=== PATIENT | male | born 1980 | race Caucasian/White ===

== ENCOUNTER 2023-03-26 09:25 | Outpatient (REF) | payer SELFPAY ==
[2023-03-27 10:12] LABS: Testosterone 422 ng/dL (264-916)
== END 2023-03-26 09:26 | disposition home or self-care (01) ==
LOC: LAB 09:25
PROVIDERS: PCP Family Medicine; Visit Provider Family Medicine
DX: E29.1 Testicular hypofunction (principal)
CPT/HCPCS: 36415; 84403

== ENCOUNTER 2024-03-04 08:59 | Outpatient (OUT) | payer SELFPAY ==
--- NOTE | 2024-03-04 09:04 | XR_ITS ---
[facility] [place] [id number] Patient Name: BAILEY ESTRELLA MRN: [id number] date: 1980 Sex: M Assigned Patient Location: [facility] Current Patient Location: Accession/Order Number: [id number] Exam Date: 03/04/2024 09:20 Report Date: 03/08/2024 07:10 At the request of: MICHELET OLMSTEAD Procedure: XR lumbar spine 2-3V EXAMINATION: XR lumbar spine 2-3V HISTORY: Lumbar Radiculopathy Acute M54.16 COMPARISON: No relevant comparison available. FINDINGS: BONES: Normal alignment with no acute fracture or spondylolisthesis. Moderate facet osteoarthropathy L5-S1 DISC SPACES: Normal. No significant disc height narrowing, subluxation, or endplate abnormality. PARASPINOUS: Negative. No paraspinous abnormality is seen. OTHER: Negative. XR/XR lumbar spine 2-3V IMPRESSION: Facet osteoarthritis Electronically authenticated by: MARY IZAGUIRRE Date: 03/08/2024 07:10
--- OUTSIDE RECORDS SUMMARY | 2024-03-04 09:09 | XMS_ITS | CCD ---
Author Organization [facility] Care Team Providers Care Circle Beveler Name Role Phone ISHAN, DR TAFOYA Admitting Unavailable ISHAN, DR TAFOYA Attending Unavailable HOY, DR TAFOYA Consulting Unavailable ISHAN, DR TAFOYA Primary Care Unavailable MARIELENA ARMENTA Attending Unavailable KATHI, MARIELENA Admitting Unavailable MARIELENA ARMENTA Consulting Unavailable ISHAN, DR TAFOYA Primary Care Unavailable ISHAN, DR TAFOYA Admitting Unavailable TONGY, DR TAFOYA Attending Unavailable HOY, DR TAFOYA Consulting Unavailable WEST, DR MARY Fonseca Consulting Unavailable ISHAN, DR TAFOYA Primary Care Unavailable ISAHN, DR TAFOYA Admitting Unavailable ISHAN, DR TAFOYA Attending Unavailable TONGY, DR TAFOYA Consulting Unavailable ZIEBER, DR SHAINA Dumont Consulting Unavailable HOY, DR TAFOYA Consulting Unavailable TONGY, DR TAFOYA Primary Care Unavailable TONGY, DR TAFOYA Admitting Unavailable ISHAN, DR TAFOYA Attending Unavailable Allergies Allergy Classification Reported Allergen(s) Allergy Type Date of Onset Reaction(s) Facility (1 source) Penicillin Drug Allergy [facility] Repository Problems Active Problems Problem Classification Problem Date Documented Date Episodic/Chronic Spondylosis; intervertebral disc disorders; other back problems (4 sources) Spondylosis without myelopathy or radiculopathy, lumbar region; Translations: [Other intervertebral disc degeneration, lumbosacral region] Onset: 09-18-2021 Chronic Spondylosis; intervertebral disc disorders; other back problems (4 sources) Dorsalgia, unspecified; Translations: [Sciatica, right side] Onset: 09-09-2021 Episodic Substance-related disorders (1 source) Nicotine dependence, cigarettes, uncomplicated; Translations: [NICOTINE DEPEND CIGARETTES UNCOMP] Onset: 09-11-2021 Chronic Unclassified (3 sources) CONTACT W/AND (SUSP) EXPOS COVID-19; Translations: [CONTACT W/AND (SUSP) EXPOS COVID-19] Onset: 10-11-2021 Unclassified (3 sources) LOW BACK PAIN, UNSPECIFIED; Translations: [LOW BACK PAIN, UNSPECIFIED] Onset: 09-18-2021 Viral infection (1 source) COVID-19; Translations: [COVID-19] Onset: 05-22-2021 Past or Other Problems Problem Classification Problem Date Documented Da te Episodic/Chronic Acute bronchitis (1 source) Acute bronchitis, unspecified; Translations: [ACUTE BRONCHITIS UNSPECIFIED] Onset: 05-22-2021 Episodic Unclassified (1 source) CONTACT W/AND (SUSP) EXPOS COVID-19; Translations: [CONTACT W/AND (SUSP) EXPOS COVID-19] Onset: 10-09-2021 Unclassified (1 source) LOW BACK PAIN, UNSPECIFIED; Translations: [LOW BACK PAIN, UNSPECIFIED] Onset: 09-13-2021 Results Test Name Value Interpretation Reference Range Facility Anesthesia Noteon 10-13-2021 Anesthesia Note [facility] Patient: FLOYD ESTRELLA [address] [place] [address] MR#: [id number] ANESTHESIA NOTE : Service Date: 10/13/21956 Post-anesthesia Note Note Patient assessed post operatively for the following: [x ] Respiratory function, including respiratory rate, airway patency and oxygen saturation [x ] Cardiovascular function, including pulse rate and blood pressure [x ] Mental status [x ] Temperature [x ] Pain [x ] Nausea and vomiting [x ] Postoperative hydration [x ] No Visual Changes Due to the following condition(s) additional monitoring may be necessary: [ ] [x ] No apparent anesthesia complications noted. [x ] Status as per pre-op Electronically Signed eSign Date and Time Gilson Dhillon AA 10/13/21 0957 Christo Amos MD Normal [facility] BASIC MET PANELon 10-13-2021 Anion gap [Moles/Vol] 9 mmol/L Normal 6-18 [facility] Comment on above: Performed By: #### L 500.36367, L500.80566 ####Test performed at: [place] [address] Calcium [Mass/Vol] 9.7 mg/dL Normal 8.5-10.1 [facility] Comment on above: Performed By: #### L 500.74061, L500.40060 ####Test performed at: [address] [address] Chloride [Moles/Vol] 108 mmol/L High 98-107 [facility] Comment on above: Performed By: #### L 500.43052, L500.92076 ####Test performed at: [address] [address] CO2 [Moles/Vol] 27 mmol/L Normal 21-32 [facility] Comment on above: Performed By: #### L 500.01075, L500.84103 ####Test performed at: [address] [address] Creatinine [Mass/Vol] 0.861 mg/dL Normal 0.700-1.300 [facility] Comment on above: Performed By: #### L 500.27663, L500.04703 ####Test performed at: [address] [address] Glucose [Mass/Vol] 120 mg/dL High 70-99 [facility] Comment on above: Result Comment: Fast ing GLUCOSE reference range has been updated per (ADA) [place] [employer]'s recommendation. 08/11/2018 Performed By: #### L 500.45780, L500.24982 ####Test performed at: [address] [address] OSM 291 mosm/kg Normal 270-300 [facility] Comment on above: Performed By: #### L 500.10292, L500.59617 ####Test performed at: [address] [address] Potassium [Moles/Vol] 4.2 mmol/L Normal 3.5-5.1 [facility] Comment on above: Performed By: #### L 500.19107, L500.91641 ####Test performed at: [place] [address] Sodium [Moles/Vol] 140 mmol/L Normal 136-145 [facility] Comment on above: Performed By: #### L 500.52135, L500.44774 ####Test performed at: [place] [address] Urea nitrogen [Mass/Vol] 11 mg/dL Normal 7-18 [facility] Comment on above: Performed By: #### L 500.40381, L500.62269 ####Test performed at: [place] [address] Discharge CCD Assessmenton 0 10-13-2021 Discharge CCD Assessment [facility] Patient: FLOYD ESTRELLA [address] [place] [address] MR#: [id number] DISCHARGE CCD ASSESSMENT : 81 Service Date: 10/13/21 1227 Discharge CCD Assessment Assessment Patient discharged home to continue pain control, wound care, and exercises. Electronically Signed eSign Date and Time Daisy Hu 10/13/21 1227 Chad Rodney MD Normal [facility] GFR ESTIMATEon 10-13-2021 IF AMER > 60 Normal > 60 [facility] Comment on above: Result Comment: eGFR (Estimated GFR) Units of measure:mL/min/1.73 meters sq. *CALCULATION REVISED 03/07/2015;IDMS-traceable MDRD equation eGFR is derived from the reexpressed MDRD Study equation using the following parameters: serum creatinine, age, gender and race. An eGFR<60 mL/min/1.73m2 for >3 months is consistent with chronic kidney disease. Refer to KDOQI guidelines for clinical interpretation. Performed By: #### L 500.96500, L500.99747 ####Test performed at: [place] [address] IF non-AFR AMER > 60 Normal > 60 [facility] Comment on above: Performed By: #### L 500.65243, L500.06764 ####Test performed at: [place] [address] HGB AND HCTon 10-13-2021 Hematocrit (Bld) [Volume fraction] 37.8 % Low 39.0-55.0 [facility] Comment on above: Performed By: #### L 200.75442 ####Test performed at: [address] [address] Hemoglobin (Bld) [Mass/Vol] 13.0 g/dL Low 14.0-16.5 [facility] Comment on above: Performed By: #### L 200.71448 ####Test performed at: [place] [address] Internal Med Progress Noteon 10-13-2021 Internal Med Progress Note [facility] Patient: FLOYD ESTRELLA [address] [place] [address] MR#: [id number] PROGRESS NOTE - Internal Medicine : 81 Service Date: 10/13/21724 Subjective Summary of Stay Mr. Floyd Estrella is a 41 yo M w/ PMHx of childhood asthma, smoker, and facet osteoarthritis L5-S1 and lumbar stenosis with foot drop (right) who is POD 1 s/p R L4-L5 LFD disectomy. IM was consulted for post op care. Procedure done under genereal anesthesia. EBL 30 cc. Pt tolerated the procedure well w/o complications. Pt was evaluated post op, vitals wnl. Patient denies any CP, SOB, nausea, vomiting, abd pain, fever, chills or MORRISON. Miky. No hill. Events since last encounter uneventful Subjective Patient states his back pain is better and numbness on right foot is improved since surgery. Pt denies bowel movement. Passing gas. Patient denies chest pain, sob, nausea, vomiting, or abd pain. Other Systems ROS are negative unless stated otherwise in the HPI Objective Exam Vitals and I/O Vital Signs Verdana 4d Result Date Time Pulse Ox 97 10/13 0001 B/P 131/72 10/13 0001 O2 Delivery ROOM AIR 10/13 0001 Temp 36.7 10/13 0001 Pulse 103 10/13 0001 Resp 18 10/13 0001 O2 Flow Rate 2 10/12 1746 Intake AND Output Verdana 4d 10/13 2300 10/12 2300 Intake Total 2295 600 Output Total 2600 1550 Balance -305 -950 Intake, IV 1195 Oral 1100 600 utput, 50 rainage Output, Urine 2550 1550 Patient 146 kg eight Weight PATIENT STATES easurement ethod General Appearance Alert, Oriented X3, Cooperative, No Acute Distress HEENT Atraumatic, PERRLA Lungs Clear to Auscultation, Normal Air Movement Neck Supple Cardiovascular Regular Rate, Normal S1, Normal S2 Abdomen Normal Bowel Sounds, Soft Extremities Normal Pulses, RT numbness on foot Skin No Significant Lesion Neurological Strength at 5/5 X4 Ext Assessment/Plan-Inte rnal Med Problem List 1. Status post lumbar spine surgery for decompression of spinal cord Med Reasons/Tx for Con't stay as above Assessment #POD 1 s/p R L4-L5 LFD disectomy -No complaints reported; no bowel movement, passing flatus. Patient denies chest pain, sob , abd pain, fever or chills. RT foot numbness has improved since sugery Vital Signs Result Date Time Pulse Ox 97 10/13 0001 B/P 131/72 10/13 0001 O2 Delivery ROOM AIR 10/13 0001 Temp 36.7 10/13 0001 Pulse 103 10/13 0001 Resp 10/13 0001 O2 Flow Rate 2 10/12 1746 -Exam showed decreased sensory function in the RT LE (chronic), drain in place -abs reviewed Hb:14.5 > 13, BMP pending -Preop EKG: NSR PLAN: - Ortho team is primary - IV Dexamethasone - IV Fluids - Percocet Q4PRN PO 1 tab for moderate pain and 2 for severe pain, Tylenol 650 mg Q4PRN PO - Colace BID, MOM QHS PRN, Dulcolax PRN, Mylanta PRN - Vasotec 2.5 mg Q6PRN IV for SBP > 170 no home meds, except pain meds #DVT ppx-as per primary team Be sure to note changes Be sure to note changes DVT Prophylaxis per surgery Does Patient have Central Line? No Does Patient have a Hill? No *Attending Attestation Attending Attestation Attending Attestation patient is doing very well, minimal anemia Obesity with BMI above 42 All pertinent elements of history and physical exam were confirmed by me. Agree with above documentation. The [resident's, PA's, CHIEF LOCK OPERATOR's] assessment and plan reflect my input. Discussed with documenting provider and patient. Plan is as outlined above. Electronically Signed eSign Date and Time Cristino Choe Resident Rosa Hurst MD 10/13/21 1043 Normal [facility] OT Therapy Recommendationson 10-13-2021 OT Therapy Recommendations [facility] Patient: FLOYD ESTRELLA [address] [place] [address] MR#: [id number] OT THERAPY RECOMMENDATIONS : 81 Service Date: 10/13/21 1355 Therapy Recommendations Therapy Recommendations Recommendations OT eval completed. Pt will benefit from going home with family support. Electronically Signed eSign Date and Time Marissa Rosas OT 10/13/21 1356 Normal [facility] Orthopedic Progress Noteon 0 10-13-2021 Orthopedic Progress Note [facility] Patient: FLOYD ESTRELLA [facility] [place] [address] MR#: [id number] PROGRESS NOTE - Orthopedic : 81 Service Date: 10/13/21 1206 Subjective Summary of Stay POD #1 Subjective Pt doing well. He states he no longer has any pain down RT leg. He is walking w\o difficulty. He asks appropriate questions about his care. He notes that he has not had BM x 3 days. General Appetite, Denies Chills, Denies Night sweats, Denies Fatigue, Denies Malaise HEENT Denies Head Aches, Denies Visual Changes, Denies Eye Pain, Denies Ear Pain, Denies Dysphasia, Denies Sinus Congestion, Denies Post Nasal Drip, Denies Sore Throat Pulmonary Denies Dyspnea, Denies Cough Cardiovascular Denies Chest Pain, Denies Palpitations, Denies Edema, Denies Lt Headedness Gastrointestinal Denies Nausea, Denies Vomiting Musculoskeletal Back Pain Neurological Denies Weakness, Denies Numbness Objective Exam Vitals and I/O Vital Signs Verdana 4d Result Date Time Pulse Ox 98 10/13 0900 B/P 158/92 10/13 0900 O2 Delivery ROOM AIR 10/13 0900 Temp 36.4 10/13 0900 Pulse 108 10/13 0900 Resp 16 10/13 0900 O2 Flow Rate 2 10/12 1746 Intake AND Output Verdana 4d 10/13 2300 10/12 2300 Intake Total 3295 600 Output Total 3400 1550 Balance -105 -950 Intake, IV 1195 Oral 2100 600 umber 0 owel ovements Output, 50 rainage Output, Urine 3350 1550 Patient 146 kg eight Weight PATIENT STATES easurement ethod General Appearance Alert, Oriented X3, Cooperative, No Acute Distress Abdomen Normal Bowel Sounds, Soft Extremities No Edema, Normal Pulses Neurological Normal Speech, Strength at 5/5 X4 Ext, Normal Tone, Sensation Intact Psych/Mental Status Mental Status NL Other Physical Findings Back dressing dry and secure, HERON drain incorp. scant amt of lt pink drainage. Pt able to plantar and dorsi flex with good strength. Results Results All Laboratory Tests 10/13 0720 Chemistry Sodium (136 - 145 mmol/L) 140 Potassium (3.5 - 5.1 mmol/L) 4.2 Chloride (98 - 107 mmol/L) 108 Carbon Dioxide (21 - 32 mmol/L) 27 BUN (7 - 18 mg/dL) 11 mg/dL) 0.861 Est GFR ( Amer) (> 60) > 60 Est GFR (Non-Af Amer) (> 60) > 60 Glucose (70 - 99 mg/dL) 120 Hematology Hgb (14.0 - 16.5 g/dL) 13.0 Hct (39.0 - 55.0 %) 37.8 Assessment and Plan - ICD10 Problem List 1. Status post lumbar spine surgery for decompression of spinal cord Med Reasons/Tx for Con't stay Discharge Assessment Plan of care per Dr Rodney Discharge later today Follow up in Dr Rodney's office on Friday for drain removal Instructions reviewed and discussed, pt verbalizes good understanding Incentive spirometer Pt discharge with HERON drain, instructions reveiwed with pt Electronically Signed eSign Date and Time Mickie Woodward RN 10/13/213 Chad Rodney MD Normal [facility] PT Therapy Recommendationson 10-13-2021 PT Therapy Recommendations [facility] Patient: FLOYD ESTRELLA [address] [place] [id number] MR#: [id number] PT THERAPY RECOMMENDATIONS : 81 Service Date: 10/13/211212 Therapy Recommendations Therapy Recommendations Recommendations PT eval complete. No further acute PT needs. Recommend d/c home /c family assist. Electronically Signed eSign Date and Time Usha Johnson PT 10/13/21 121 Normal [facility] z OT Inpatient Evaluationon 10-13-2021 z OT Inpatient Evaluation [facility] Patient: FLOYD ESTRELLA [address] [place] [id number] MR#: [id number] OT INPATIENT EVALUATION : 81 Inpatient OT HPI Date of Service 10/13/21 Time In: 1009 Time Out: 1038 Total Treatment Time (Mins) 31 Visit Reason LATERAL RECESS STENOSIS Surgery Type/Date Rt L4-L5 Laminectomy, foraminotomy, decompression with poss discectomy. Referral Date 10/12/21 Tx Diagnosis: LUMBAGO Insurance Name [facility] 41yo M admitted for above surgical procedure. PMH asthma, smoker and facet osteothristis C5-S1; Lumbar stenosis, foot drop Rt. OT received referral to eval and tx with up ad jorge with A, enc ambulation, spinal precautions, brace when out of the room, and log roll. Past Medical/Social History Problem List Surgical Problems Status post lumbar spine surgery for decompression of spinal cord Living Arrangements Home Lives With Spouse, Family Steps to Enter House 3 Stairs Inside House 15 Railings Right Handrail Adaptive Equipment Braces ADL Equipment High Toilet Bedroom Location 1st Floor Bathroom Location 1st Floor Shower Walk in Tasks Prior to Admission Shopping, Driving Transportation Method Patient Drives Functional Level Pt is IND with most self care and IADL. Pt shared that helps with lower body dressing - pants and socks. Objective Precautions Back Brace, Lumbar Spine Pain Scale 2 Pain Character Ache Pain Location Back Comments Increases with mobility. Orientation Person, Place, Time, Situation Behavior Within Normal Limits Sensation Within Normal Limits Hand Dominance Right Coordination Fine Motor Coordination Within Functional Limits Gross Motor Coordination Within Functional Limits ROM RUE ROM Full Range of Motion LUE ROM Full Range of Motion RLE ROM See PT notes LLE ROM See PT notes Strength RUE Strength Unable to Assess LUE Strength Unable to Assess RLE Strength See Pt notes LLE Strength See PT notes Comments Bilateral upper extremities WFLs for participation in management of ADLs and functional mobility tasks. Outcome Measures Prabhu Score Prabhu Score Response Value Feeding Independent 10 Bathing Independent 5 Grooming Independent 5 Dressing Needs Help/Half unaided 5 Bowels Continent 10 Bladder Continent 10 Toilet Independent 10 ransfer(Bed to Chair and Back) Independent 15 obility (On Level Surfaces) Independent 15 tairs Independent 10 otal 95 Comments [5] % disability based on the Prabhu Index ADL Function ADL Function Upper Body Dressing Modified Independent Lower Body Dressing Modified Independent Upper Body Bathing Setup Lower Body Bathing Independent Toileting Independent Feeding Independent Grooming Setup Comments Patient is independent/modified independent with all ADLs and functional mobility tasks. Patient instructed in and performed lower body dressing/ADLs via modified techniques and with long handled adaptive equipment as noted above level of assist. Patient donned pants using hop sorter. OT instructed on exercises, reviewed precautions, and the instructions of the Home Going package. Transfers Transfers Supine to Sit Standby Assist Sit to Stand Supervision Stand to Sit Supervision Sit to Supine Standby Assist Toilet Standby Assist Rolling Standby Assist Comments OT instructed on log roll, pendulum and spinal precautions for bed mobility - pt demo back well. OT provided feedback. Static Sitting Balance Good Dynamic Sitting Balance Good Static Standing Balance Good Dynamic Standing Balance Good Treatment Additional Minutes of Tx Performed 0 Remained in Chair All Needs Within Reach Yes Assessment/Plan for Inpt OT DC Recommendations Home-No Home Health Care Topic #1 Rehabilitation Techniques Teaching Method: DEMONSTATION Outcome: VERBALIZED/ADEQ TEACHBACK Problems ADL Skills, Activity Tolerance Rehab Potential Good Treatment Tolerance Good Assessment Patient demonstrates limitations and decline from functional baseline due to post operative pain, and precautions. Skilled OT services are indicated to address patient deficits and to increase patient safety/independence with ADL management and functional mobility tasks. Patient was pleasant, alert, and cooperative throughout the session. Transfer in/out of bed with: MOD I Complete UB dressing/bathing with: MOD I Complete LB dressing/bathing with: MOD I Transfer in/out tub or walk in shower: Independent Performs UE Exercise With: Antigravity AROM Verbalize/demo Spinal Precautions for ADLs and Transfers Patient Stated Goal: Go home Frequency of Therapy 3-5 Times/Week Duration Until Discharge Treatment Therapeutic Exercise, Therapeutic Activity, Patient Education, Self Care/ADL Training Patient Status ACTIVE Eval Completed Yes Eval Complexity Low Complexity Treatment (more content not included)... Normal [facility] z PT Inpatient Discharge Not mary ann 10-13-2021 z PT Inpatient Discharge Note [facility] Patient: FLOYD ESTRELLA [address] [id number] MR#: [id number] PT INPATIENT DISCHARGE NOTE : 81 Service Date: 10/13/21 1227 z PT Inpt. HPI Discharge Note Total number of visits 1 Date of Discharge 10/13/21 Start of Care Date 10/13/21 Final Date of Care 10/13/21 z PT Inpatient AP Discharge Treatment: Therapeutic Activity, Patient Education, Therapeutic Exercise, Gait Training, HEP Treatment Goals Achieved: Yes Plan Discharge from PT Discharge Recommendations Home-No Home Health Care PT Status: DISCHARGED Electronically Signed eSign Date and Time Usha Johnson PT 10/13/21 1228 Normal [facility] z PT Inpatient Evaluationon 10-13-2021 z PT Inpatient Evaluation [facility] Patient: FLOYD ESTRELLA [address] [id number] MR#: [id number] PT INPATIENT EVALUATION : 81 Service Date: 10/13/21 1213 Inpatient PT HPI Date of Service 10/13/21 Time In: 1025 Time Out: 1050 Total Treatment Time (Mins) 25 Room Number 622 Visit Reason LATERAL RECESS STENOSIS Surgery Type: R L4-5 lami, foraminotomy, decompression /c diskectomy Surgery Date: 10/12/21 Referral Date 10/12/21 Tx Diagnosis: LOW BACK PAIN Insurance Name [facility] 41 y.o male at [facility] for above sx d/t lateral recess stenosis and RLE pain, n/t. PT orders received eval/tx, encourage ambulation, logroll, ad jorge /c assist, brace OOR. Brace needs to be provided, per orders. Pt supine at arrival, OT finishing evaluation. Pt agreeable to session. Past Medical/Social History Problem List Surgical Problems Status post lumbar spine surgery for decompression of spinal cord Living Arrangements Home Lives With Family Mobility Aids None Steps to Enter House 3 Stairs Inside House 15 Railings Right Handrail Functional Level Pt reports being indep /c daily tasks prior, except spouse needing to assist /c dressing at times d/t back pain. Denies AD use or recent falls. 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 Pt reports back pain that would radiate to R glut/hip and n/t down the R leg and to the top of his ankle. Objective Pain Pain Scale 3 Pain Character Ache Pain Location Back Precautions Back Brace, Spinal Equipment Drain, Peripheral IV Dynamic Sitting Balance Good Dynamic Standing Balance Good Orientation Person, Place, Time, Situation Behavior Cooperative Sensation Within Functional Limits Endurance Good Posture Rounded Shoulders (6'1 319#) Wound/Skin WFL;drain and lumbar dressing in place Coordination Coordination Within Functional Limits ROM Comments WFL Strength Comments At least 3/5 throughout Outcome Measures AM-PAC Inpatient Mobility AM-PAC Inpatient Mobility Response Value Turn Back/Side While Flat WO Bedrails None 4 Move From Lying to Side of Bed WO Bedrails None 4 Move To/From Bed to Chair None 4 Stand Up From Chair Using Arms None 4 Walk in Hospital Room None 4 limb 3-5 Steps W Railing None 4 otal 24 Mobility Transfers Supine to Sit Standby Assist, Supervision Sit to Supine Supervision Sit to Stand Supervision Stand to Sit Supervision Rolling Supervision Weight Bearing No Restrictions Comments Supine-sit /c review of logroll. HOB flat, UE support, good return demo. Low profile brace provided and fit to pt at EOB. Sit-stands /c bed elevated, continued UE assist, slow/steady transfer. Pt remains EOB end of session, NAD. Gait Patient ambulated With Supervision, With Standby Assist With Assistive Device None For (Feet) 80x2 Comments Brace in place. Pt /c slightly rounded posture, able to self correct at times. Step through gait, equal step length yecenia. Pt denies any MORRISON/dizziness. Stairs Steps Up 4 Steps Down 4 Device Right Handrail Pattern Non-Reciprocating Assistance Required With Supervision Comments Pt cued for technique;good return demo. Treatment Additional Minutes of Tx Performed 8 Remained in Edge of Bed All Needs Within Reach Yes Comments Pt instructed on all lumbar precautions, logroll, activity AND d/c recs. Pt instructed on BLE antiembolics, written HEP provided. Pt /c multiple questions regarding activity restrictions, brace wearing, etc;all addressed as able. Assessment/Plan for Inpt PT Discharge Recommendations Home-No Home Health Care Topic #1 Role of PT, precautions, HEP Teaching Method: TEACHBACK Outcome: VERBALIZED/ADEQ TEACHBACK Problems Decreased ROM, Pain Rehab Potential Good Treatment Tolerance Good Assessment Pt presents /c above problem list s/p lumbar sx /c postop pain/precautions and altered mobility patterns. After instruction pt demonstrates ability to safely perform all transfers, gait, stair training /s hands on assist and within precautions. No further acute PT needs. Recommend d/c home /c family assist. Patient Stated Goal: NA Patient Status DISCHARGED Eval Completed Yes Eval Complexity Low Treatment Performed Yes Electronically Signed eSign Date and Time Usha Johnson PT 10/13/21 1352 Normal [facility] ABO/RH REPEATon 10-12-2021 REPEAT TYPE Negative Normal [facility] Comment on above: Order Comment: CBN: NO [place]: MAIN Transfusion Status: CONSERVATION Blood Bank service requested: TYPE AND SCREEN Specimen Comment: PT IN HOLDING Performed By: #### B 100.0260, B100.0200 #### Test performed at: [place] [address] Internal Medicine Consultati onon 10-12-2021 Internal Medicine Consultation [facility] Patient: FLOYD ESTRELLA [address] [place] [address] MR#: [id number] CONSULTATION - Internal Medicine : 82 Service Date: 10/12/21 1614 See Addendum Paula 4d History of Present Illness Referring Physician Chad Rodney MD Consulted Physician Rosa Hurst MD Reason for Consult medical mangement HPI Mr. Floyd Estrella is a 41 yo M w/ PMHx of childhood asthma, smoker, and facet osteoarthritis L5-S1 and lumbar stenosis with foot drop (right) who is POD 0 s/p R L4-L5 LFD disectomy. IM was consulted for post op care. Procedure done under genereal anesthesia. EBL 30 cc. Pt tolerated the procedure well w/o complications. Pt was evaluated post op, vitals wnl. Patient denies any CP, SOB, nausea, vomiting, abd pain, fever, chills or MORRISON. Miky. No hill. Medical/Surgical History Past Medical History Respiratory History Asthma (childhood) Musculoskeltal/Skin History Back Problems Transfusion Status CONSERVATION Family/Social History Social History Tobacco Use CIGARETTES Packs/Day 1 Alcohol UNKNOWN Allergies/Home Medications Allergies Coded Allergies: PENICILLINS (Severe, HIVES 10/12/21) Reconcile Medications Scheduled Medications Carisoprodol * (Soma 350mg Tablet*) 350 MG TABLET 350 MG PO BID, Ref 0 (Reported) Entered as Reported by CAORL SEN on 10/12/21 102 Last Action: Held on 10/12/211622 by CRISTINO CHOE Scheduled PRN Medications Oxycodone HCl/Acetaminophen 5mg/325mg * (Roxicet 5mg-325mg *) 1 EACH TABLET 1 EACH PO Q3PRN PRN PAIN, Ref 0 (Reported) Entered as Reported by CAROL SEN on 10/12/21 102 Last Action: Held on 10/12/211622 by CRISTINO CHOE Discontinued Medications Vitamin A AND D in Petrol/LLanolin * (A + D *) 60 GM OINT 1 APPL TOPICAL DAILY, Ref 0 ( Reported) Discontinued reason: Med Entered in Error Last Action: Discontinued on 10/12/211022 by CAROL SEN Review of Systems Review of Systems ROS: Other ROS are negative unless stated otherwise in the hPI Physical Exam Vital Signs Vital Signs Vital Signs Verdana 4d Result Date Time Pulse Ox 100 10/12 1026 B/P 128/98 10/12 102 Temp 36.8 10/12 1026 Pulse 75 10/12 1026 Resp 16 10/12 1026 Appearance Appearance Appears well, Awake, Alert, No distress Cm: 185.42 Wt-K.000 BMI 42 Patient is Morbidly Obese Pain Scale 3 Neck Neck Normal inspection, No JVD HEENT HEENT Head atraumatic, Eyes normal inspection Respiratory Respiratory Lungs sound clear, Respirations non-labored CVS Cardiovascular Rate WNL, Rhythm regular, Normal heart sounds Neuro * Document results of Cranial Nerve Asmt for all BH pts. Neurological Alert, Oriented x 3 Abdomen/Pelvis Abdomen Bowel sounds present, Abdomen soft, Non-tender Extremity Extremity Motor Intact, numbness in right LE (chronic) Skin Skin Color normal, Skin warm, dry Assessment/Plan Problem List 1. Status post lumbar spine surgery for decompression of spinal cord Assessment and Plan #POD 0 s/p R L4-L5 LFD disectomy -Patient received general anesthesia -Patient seen by medical team in PACU -No complaints reported -Vitals: Bp:140/83 Hr:85 Spo2:99% on 3L via FM -Exam showed decreased sensory function in the RT LE (chronic), drain in place -Preop labs reviewed Hb:14.5 wbc:wnl Plts:334, BMP, K+ 4.4 creat:1.1 -Preop EKG: NSR PLAN: - Ortho team is primary - IV Dexamethasone - IV Fluids - Percocet Q4PRN PO 1 tab for moderate pain and 2 for severe pain, Tylenol 650 mg Q4PRN PO - Colace BID, MOM QHS PRN, Dulcolax PRN, Mylanta PRN - Vasotec 2.5 mg Q6PRN IV for SBP > 170 #DVT ppx-as per primary team ADDENDUM: CRISTINO CHOE on 12/12/21 at 1146 Addendum Add Electronically Signed eSign Date and Time Cristino Choe Resident 12/12/21 1146 Rosa Hurst MD [facility] OPERATIVE REPORTon OPERATIVE REPORT NAME: FLOYD ESTRELLA MR#: [id number] SURGEON: Chad Rodney MD DATE OF SURGERY: 10/12/2021 OPERATIVE REPORT PREOPERATIVE DIAGNOSIS: Lateral recess stenosis, lumbar. POSTOPERATIVE DIAGNOSIS: Lateral recess stenosis, lumbar. OPERATIVE PROCEDURE: Right L4-L5 laminotomy, foraminotomy, and decompression with diskectomy. ANESTHESIA: General. DETAILS: After anesthesia, the patient was placed prone on a spine frame. Care was taken to avoid injury to the eyes, axilla, and the median and ulnar nerves. The back was prepped and draped in usual fashion. The incision was planned using C-arm. A longitudinal incision was made midline with sharp dissection subcutaneous tissues. The fascia and paraspinal muscles were dissected bluntly down to the right L4-L5 interspace and the tubular retractor was inserted. X-ray confirmed position in AP and lateral planes. The right L4 lamina was cleared of soft tissue and directly visualized. Under magnification, the lamina and medial facet was thinned with a radha. Laminotomy was performed removing the inferior aspect of the L4 lamina with Kerrison rongeurs. Partial medial facetectomy was performed with Kerrison rongeurs. The ligamentum was released with a nerve hook and removed with Kerrison rongeurs while protecting the dura. The superior aspect of the L5 lamina was removed with Kerrison rongeurs. In doing so, the traversing L5 root was well decompressed. Foraminotomy was performed with straight and curved Kerrison rongeurs and the lateral recess was decompressed with straight and curved Kerrison rongeurs. After thorough decompression, the epidural space was palpated with a Craft hook. The foramen was patent and the exiting L4 root well decompressed. The lateral recess was well decompressed and traversing L5 root was well decompressed. The dura was then gently retracted towards the midline and palpated with a nerve hook. This revealed a herniation. The epidural vessels were coagulated with the bipolar and a sharp transverse annulotomy was performed and diskectomy performed with straight and angled pituitary rongeurs. Reverse cutting curettes were used to pound down some of the osteophyte. This was then removed with the pituitary rongeurs. After diskectomy, palpation was performed with a nerve hook and it appeared that the volar compressive pathology had been removed. The wound was irrigated with saline Betadine solution. Hemostasis was achieved with FloSeal. The tubular retractor was removed and bleeding coagulated along the way. A silastic drain was left deep in the wound exiting through separate stab incision. The fascia, subcutaneous tissues, and skin were closed in the [facility] PT NAME: FLOYD ESTRELLA MR#: [id number] [address] [place] [address] ACCT: [id number] : 82 OPERATIVE REPORT usual manner. Dressings were applied. The patient was awakened, taken to recovery room in excellent condition. There were no complications. MD [facility]/[id number] E/S: Chad Rodney MD 10/31/21 1121 Electronically Signed [facility] PT NAME: FLOYD ESTRELLA MR#: [id number] [address] [place] [address] ACCT: [id number] : 82 OPERATIVE REPORT Normal [facility] Primary Residenton 2 Primary Resident [facility] Pt Name: FLOYD ESTRELLA MR#: [id number] [address] [place] [address] ACCT: [id number] [place] [address] : 82 Service Date: 10/12/21 1623 Primary Resident/Call Primary Resident: Sherman Choe Halo After Hours Call: [phone] Red Team Electronically Signed eSign Date and Time Cristino Choe Resident 10/12/21 1623 Normal [facility] TSon 10-12-2021 ABO and Rh group Nom (Bld) Blood group O Rh(D) negative Normal [facility] Comment on above: Order Comment: CBN: NO [place]: MAIN Transfusion Status: CONSERVATION Blood Bank service requested: TYPE AND SCREEN Specimen Comment: PT IN HOLDING Performed By: #### B 100.0260, B100.0200 #### Test performed at: [place] [address] LUMBAR SPINE 2 OR 3 VIEWSon 10-11-2021 LUMBAR SPINE 2 OR 3 VIEWS STUDY: LUMBAR SPINE 2 OR 3 VIEWS; 10/12/2021 3:45 pm INDICATION: RT L4-5 LMAINECOTMY FORAMINOTOMY DECOMPRESSION. COMPARISON: None. ACCESSION NUMBER(S): [id number] ORDERING CLINICIAN: Chad Rodney FINDINGS: Intraoperative fluoroscopy lumbar spine for localization. IMPRESSION: As above Normal [facility]on [facility]-17 SARS-CoV-2 (COVID-19) RNA ARABELLA+probe Ql (Unsp spec) Not detected Normal NOT DETECTED [facility] Comment on above: Result Comment: This test is not yet approved or cleared by the [place] FDA. When there are no FDA-approved or cleared tests available, and other criteria are met, FDA can make tests available under an emergency access mechanism called an Emergency Use Authorization (EUA). The EUA for this test is supported by the [place] of Health and Human Service's (HHS's) declaration that circumstances exist to justify the emergency use of in vitro diagnostics for the detection and/or diagnosis of the virus that causes COVID-19. This EUA will remain in effect (meaning this test can be used) for the duration of the COVID-19 declaration justifying emergency of IVDs, unless it is terminated or revoked by FDA (after which the test may no longer be used). When diagnostic testing is negative, the possibility of a false negative should be considered in the context of a patient's recent exposures and the presence of clinical signs and symptoms consistent with SARS-CoV-2. Performed By: #### C VDTB #### [facility] [address] [place] [address] Dr. Leah Kaufman BASIC MET PANELon 10-08-2021 Anion gap [Moles/Vol] 8 mmol/L Normal 6-18 [facility] Comment on above: Performed By: #### L 500.01429, L500.41416 ####Test performed at: [address] [address] Calcium [Mass/Vol] 9.7 mg/dL Normal 8.5-10.1 [facility] Comment on above: Performed By: #### L 500.04178, L500.20815 ####Test performed at: [address] [address] Chloride [Moles/Vol] 104 mmol/L Normal 98-107 [facility] Comment on above: Performed By: #### L 500.57967, L500.31782 ####Test performed at: [address] [address] CO2 [Moles/Vol] 31 mmol/L Normal 21-32 [facility] Comment on above: Performed By: #### L 500.11644, L500.64072 ####Test performed at: [address] [address] Creatinine [Mass/Vol] 1.110 mg/dL Normal 0.700-1.300 [facility] Comment on above: Performed By: #### L 500.20931, L500.11694 ####Test performed at: [address] [address] Glucose [Mass/Vol] 90 mg/dL Normal 70-99 [facility] Comment on above: Result Comment: Fast ing GLUCOSE reference range has been updated per (ADA) [place] [employer]'s recommendation. 08/11/2018 Performed By: #### L 500.91200, L500.18587 ####Test performed at: [address] [address] OSM 288 mosm/kg Normal 270-300 [facility] Comment on above: Performed By: #### L 500.55852, L500.02227 ####Test performed at: [address] [address] Potassium [Moles/Vol] 4.4 mmol/L Normal 3.5-5.1 [facility] Comment on above: Performed By: #### L 500.39007, L500.72941 ####Test performed at: [address] [address] Sodium [Moles/Vol] 139 mmol/L Normal 136-145 [facility] Comment on above: Performed By: #### L 500.02240, L500.38108 ####Test performed at: [address] [address] Urea nitrogen [Mass/Vol] 14 mg/dL Normal 7-18 [facility] Comment on above: Performed By: #### L 500.27630, L500.83990 ####Test performed at: [address] [address] CBC W/DIFFon 10-08-2021 BASO ABS 0.1 K/uL Normal 0.0-0.2 [facility] Comment on above: Performed By: #### L 200.28651 #### Test performed at: [address] [address] Basophils/100 WBC (Bld) 0.9 % Normal [facility] Comment on above: Performed By: #### L 200.91528 #### Test performed at: [address] [address] EOS ABS 0.2 K/uL Normal 0.0-0.5 [facility] Comment on above: Performed By: #### L 200.16964 #### Test performed at: [address] [address] Eosinophils/100 WBC (Bld) 3.3 % Normal [facility] Comment on above: Performed By: #### L 200.12794 #### Test performed at: [address] [address] IG % 0.3 % Normal [facility] Comment on above: Performed By: #### L 200.94095 #### Test performed at: [address] [address] IG ABS 0.02 K/uL Normal 0-0.05 [facility] Comment on above: Performed By: #### L 200.21916 #### Test performed at: [address], [place] [address] Lymphocytes (Bld) [#/Vol] 2.6 10*3/uL Normal 1.2-3.5 [facility] Comment on above: Performed By: #### L 200.63895 #### Test performed at: [address] [address] Lymphocytes/100 WBC (Bld) 39.4 % Normal [facility] Comment on above: Performed By: #### L 200.24898 #### Test performed at: [address] [address] MONO ABS 0.5 K/uL Normal 0.0-1.0 [facility] Comment on above: Performed By: #### L 200.24268 #### Test performed at: [address] [address] Monocytes/100 WBC (Bld) 8.1 % Normal [facility] Comment on above: Performed By: #### L 200.39172 #### Test performed at: [address] [address] NEUTROPHIL ABS 3.2 K/uL Normal 1.4-6.6 [facility] Comment on above: Performed By: #### L 200.21374 #### Test performed at: [address] [address] Neutrophils/100 WBC (Bld) 48.0 % Normal [facility] Comment on above: Performed By: #### L 200.72884 #### Test performed at: [address] [address] Erythrocyte distribution width (RBC) [Ratio] 12.9 % Normal 11.5-14.5 [facility] Comment on above: Performed By: #### L 200.15560 #### Test performed at: [address] [address] Hematocrit (Bld) [Volume fraction] 43.6 % Normal 39.0-55.0 [facility] Comment on above: Performed By: #### L 200.80811 #### Test performed at: [place] [address] Hemoglobin (Bld) [Mass/Vol] 14.5 g/dL Normal 14.0-16.5 [facility] Comment on above: Performed By: #### L 200.82427 #### Test performed at: [place] [address] MCH (RBC) [Entitic mass] 28.4 pg Normal 25.4-34.6 [facility] Comment on above: Performed By: #### L 200.46517 #### Test performed at: [place] [address] MCHC (RBC) [Mass/Vol] 33.3 g/dL Normal 31.5-36.5 [facility] Comment on above: Performed By: #### L 200.88870 #### Test performed at: [place] [address] MCV (RBC) [Entitic vol] 85.3 fL Normal 80.0-100.0 [facility] Comment on above: Performed By: #### L 200.79786 #### Test performed at: [place] [address] NRBC # 0.000 K/uL Normal 0-0.012 [facility] Comment on above: Performed By: #### L 200.17081 #### Test performed at: [place] [address] NRBC % 0.0 /100 WBC Normal 0-0.2 [facility] Comment on above: Performed By: #### L 200.33741 #### Test performed at: [place] [facility] [address] Platelet mean volume (Bld) [Entitic vol] 9.8 fL Normal 8.7-12.4 [facility] Comment on above: Performed By: #### L 200.88327 #### Test performed at: [address] [address] Platelets (Bld) [#/Vol] 334 10*3/uL Normal 140-440 [facility] Comment on above: Performed By: #### L 200.59101 #### Test performed at: [address] [address] RBC (Bld) [#/Vol] 5.11 10*6/uL Normal 3.5-5.5 [facility] Comment on above: Performed By: #### L 200.85298 #### Test performed at: [address] [address] WBC (Bld) [#/Vol] 6.7 10*3/uL Normal 3.9-11.0 [facility] Comment on above: Performed By: #### L 200.76350 #### Test performed at: [address] [address] CONSULTATION REPORTon 2021 CONSULTATION REPORT NAME: FLOYD ESTRELLA MR#: [id number] RN POST PARTUM: Danielle Koenig MD DATE OF CONSULTATION: 10/08/2021 CONSULTATION HISTORY OF PRESENT ILLNESS: Mr. Estrella is a 41-year-old gentleman and I have been consulted by Dr. Rodney for preop clearance before undergoing L4-L5 disk surgery with a possible diskectomy. He has been having a lot of back pain radiating to the right leg. Otherwise, he is in good health. His functional capacity is around 5 METS. He denies chest pain, shortness of breath, nausea, vomiting, diarrhea, or constipation. No blood in the stools or black stools. PAST HISTORY: Significant for chronic low back pain. SOCIAL HISTORY: He is not a smoker. No major use of alcohol or drugs. ALLERGIES: Penicillin. MEDICATION LIST: Include oxycodone 5 mg 4 times a day and Soma as needed. Diclofenac has been stopped. REVIEW OF SYSTEMS: As I mentioned above. PHYSICAL EXAMINATION: VITAL SIGNS: He is 6 feet 1 inch tall, 320 pounds, pulse ox is 98% on room air, 98.2, 81, 20, blood pressure is 130/90, diastolic is high normal. HEENT: Atraumatic head. Pupils are equal and reactive. NECK: Supple. He does not have sleep apnea. LUNGS: Clear. HEART: S1, S2 present. Regular rate and rhythm. Sinus, no murmurs. ABDOMEN: Soft, nontender. Bowel sounds are present. No organomegaly. NEUROLOGIC: He is awake, alert, and oriented x3. Cranial nerves, motor, sensory, reflexes are within normal limits. BACK: He has a lot of back pain at L4-L5 area with radiation to the right leg. IMPRESSION: Preop clearance for right L4-L5 diskectomy, otherwise normal physical. PLANS: I am going to do a CBC and a BMP and he has stopped the diclofenac and no need any further workup. He can continue with the oxycodone and Soma as needed and take Tylenol for the pain. Pending the labs, he is cleared for anesthesia with acceptable risk. [facility] PT NAME: FLOYD ESTRELLA MR#: [id number] [address] [place] [address] ACCT: [id number] : 82 CONSULTATION Thank you for the courtesy of this consultation. DANIELLE KOENIG MD MS/MODL/[id number] E/S: Danielle Koenig MD 10/08/21 1342 Electronically Signed [facility] PT NAME: FLOYD ESTRELLA MR#: [id number] [address] [place] [address] ACCT: [id number] : 82 CONSULTATION Normal [facility] GFR ESTIMATEon 10-08-2021 IF AMER > 60 Normal > 60 [facility] Comment on above: Result Comment: eGFR (Estimated GFR) Units of measure:mL/min/1.73 meters sq. *CALCULATION REVISED 03/07/2015;IDMS-traceable MDRD equation eGFR is derived from the reexpressed MDRD Study equation using the following parameters: serum creatinine, age, gender and race. An eGFR<60 mL/min/1.73m2 for >3 months is consistent with chronic kidney disease. Refer to KDOQI guidelines for clinical interpretation. Performed By: #### L 500.31533, L500.84041 ####Test performed at: [place] [address] IF non-AFR AMER > 60 Normal > 60 [facility] Comment on above: Performed By: #### L 500.67169, L500.79032 ####Test performed at: [place] [address] MRI LSPINE WO CONon 09-14-19 MRI LSPINE WO CON EXAMINATION: MRI LSPINE WO CON HISTORY: Low back pain , acute lumbar and right leg pain COMPARISON: No relevant comparison available. TECHNIQUE: A variety of imaging planes and parameters were utilized for visualization of suspected pathology. FINDINGS: For the purposes of numbering, sagittal T2 image # 8 extends from the T11-12 vertebral body superiorly to the S2-3 level inferiorly. PARASPINAL AREA: Normal with no visible mass. BONES: No fracture, pars defect, or osseous lesion. CORD/CAUDA EQUINA: Normal caliber, contour, and signal intensity. DISC LEVELS: 12-L1: No significant disc/facet abnormality, spinal stenosis, or foraminal stenosis. L1-L2: No significant disc/facet abnormality, spinal stenosis, or foraminal stenosis. L2-L3: Moderate degenerative disc disease is present without visible neural impingement. L3-L4: Early degenerative disc disease is present without focal protrusion or neural impingement. L4-L5: Moderate marked central canal narrowing and mild bilateral foramen narrowing. Moderate diffuse disc bulging with small right paracentral protrusion, and mild degenerative facet arthropathy. L5-S1: Marked right foramen narrowing, moderate on left. No significant central canal narrowing. Mild diffuse disc bulging disc at reduction. Moderate degenerative facet arthropathy. IMPRESSION: 1. L5-S1 marked right foramen narrowing secondary to degenerative disc disease and degenerative facet arthropathy; likely accounting for patient's symptoms. 2. L4-5 moderate central canal and mild bilateral foramen narrowing secondary to degenerative disc disease and mild degenerative facet arthropathy. Electronically authenticated by: SHAINA HENRY Date: 2021-09-13 12:53 Normal [facility] XR FOREIGN BODY EYEon 2021 XR FOREIGN BODY EYE EXAMINATION: XR FOREIGN BODY EYE HISTORY: Foreign body in eye COMPARISON: No relevant comparison available. FINDINGS: ORBITS: Negative for a metallic foreign body. OTHER: Negative. IMPRESSION: 1. No metallic foreign body within the orbits. Electronically authenticated by: SHAINA HENRY Date: 2021-09-13 11:11 Normal [facility] XR LSPINE MIN 4 VIEWSon 08-18 XR LSPINE MIN 4 VIEWS EXAMINATION: XR LSPINE MIN 4 VIEWS HISTORY: Low back pain COMPARISON: No relevant comparison available. FINDINGS: BONES: Normal alignment with no acute fracture or spondylolisthesis. Moderate facet osteoarthropathy L5-S1 DISC SPACES: Normal. No significant disc height narrowing, subluxation, or endplate abnormality. PARASPINOUS: Negative. No paraspinous abnormality is seen. OTHER: Negative. IMPRESSION: Facet osteoarthritis L5-S1 Electronically authenticated by: MARY IZAGUIRRE Date: 2021-09-10 17:46 Normal [facility] Covid-19 PCR (CVDTB)on 04-19 SARS-CoV-2 (COVID-19) RNA ARABELLA+probe Ql (Unsp spec) Detected Critically abnormal NOT DETECTED [facility] Comment on above: Result Comment: This test is not yet approved or cleared by the [place] FDA. When there are no FDA-approved or cleared tests available, and other criteria are met, FDA can make tests available under an emergency access mechanism called an Emergency Use Authorization (EUA). The EUA for this test is supported by the [place] of Health and Human Service's (HHS's) declaration that circumstances exist to justify the emergency use of in vitro diagnostics for the detection and/or diagnosis of the virus that causes COVID-19. This EUA will remain in effect (meaning this test can be used) for the duration of the COVID-19 declaration justifying emergency of IVDs, unless it is terminated or revoked by FDA (after which the test may no longer be used). Performed By: #### [facility] #### [facility] [address] [place], [place] [address] Dr. Leah Kaufman Encounters Encounter Date Encounter Type Care Provider Facility Start: 10-09-2021 End: 10-10-[address] MICHELET OLMSTEAD Facility:[facility] Start: 09-13-2021 End: 09-14-[address] MICHELET OLMSTEAD Facility:[facility] Start: 09-10-2021 End: 09-11-[address] MICHELET OLMSTEAD Facility:[facility] Start: 09-09-2021 End: 09-10-[address] MICHELET OLMSTEAD Facility:[facility] Start: 05-16-2021 End: 05-16-[address] MICHELET OLMSTEAD Facility:[facility] Procedures Date Procedure Procedure Detail Performing Clinician Start: 10-12-2021 Antibody screen Comment on above: Order Comment: CBN: NO [place]: MAIN Transfusion Status: CONSERVATION Blood Bank service requested: TYPE AND SCREEN Specimen Comment: PT IN HOLDING Performed By: #### B 100.0260, B100.0200 #### Test performed at: [place] [address] Payers Date Payer Category Payer Unknown [id number] 2.16.84 [id number] 1981 Unknown [id number] 2.16.84 [id number] 1981 Unknown [id number] 2.16.84 [id number] 1981 Unknown [id number] 2.16.84 [id number] 1981 Unknown [id number] 2.16.84 [id number] 1959 Unknown [id number] Discharge summary note 10-15-2021 Note Date & Type Note Facility 10-15-2021 Note [facility] Patient: FLOYD ESTRELLA [address] [place] [address] MR#: [id number] [place] [facility] [id number] DISCHARGE SUMMARY : 82 Service Date: 10/15/21705 Discharge Admission Date 10/12/21 Discharge Date 10/13/21 Principal Diagnosis s/p lumbar spine decompression Secondary Diagnoses/Problem Surgical Problems Status post lumbar spine surgery for decompression of spinal cord Hospital Course Mr. Floyd Estrella is a 41 yo M w/ PMHx of childhood asthma, smoker, and facet osteoarthritis L5-S1 and lumbar stenosis with foot drop (right) who is POD s/p R L4-L5 LFD disectomy. IM was consulted for post op care. Procedure done under genereal anesthesia. EBL 30 cc. Pt tolerated the procedure well w/o complications. Pt was evaluated post op, vitals wnl. Patient denies any CP, SOB, nausea, vomiting, abd pain, fever, chills or MORRISON. Miky. No hill. Discharge Medications Stop taking the following medications: Oxycodone HCl/Acetaminophen 5mg/325mg * (Roxicet 5mg-325mg *) 1 EACH TABLET 1 EACH ORAL EVERY 3 HOURS NEEDED as needed for PAIN Carisoprodol * (Soma 350mg Tablet*) 350 MG TABLET 350 MILLIGRAM ORAL 2 TIMES DAILY Continue taking these medications: Docusate Sodium * (Colace *) 100 MG CAPSULE 100 MILLIGRAM ORAL 2 TIMES DAILY Instructions: buy over the counter, take to help prevent constipation while taking opiod pain reliever Polyethylene Glycol 3350 * (Miralax *) 17 GM PACKET 17 GRAM ORAL EVERY DAY Instructions: buy over the counter Comments: Take next dose at: TOMORROW Start taking the following new medications: Carisoprodol * (Soma 350mg Tablet*) 350 MG TABLET 350 MILLIGRAM ORAL THREE TIMES DAILY NEEDED as needed for Spasms Days = 7 Qty = 21 No Refills HYDROcodone Bit 5mg AND Acetaminophen 325mg * (HYDROcodone Bit 5mg AND Acetaminophen 325mg *) 1 EACH TABLET 1 EACH ORAL EVERY 4-6 HRS PRN as needed for Postop pain Days = 7 Qty = 42 No Refills Cephalexin Monohydrate * (Keflex *) 500 MG TABLET 500 MILLIGRAM ORAL 4 TIMES A DAY Days = 5 Qty = 20 No Refills Referrals Ordered Referrals Followup- Ortho 10/16/21 For Providers: Chad Rodney MD [facility] [place] [address] Call the office for appointment time to have drain removed Diet REGULAR Condition Fair Disposition Home Electronically Signed eSign Date and Time Cristino Choe Resident 10/16/21 0833 Keri Hurst MD [facility] Summary Purpose Family History No Family History Records FoundNo Family History Records Found Advance Directives No Advanced Directives Records FoundNo Advanced Directives Records Found Additional Source Comments (unrecognized sect ion and content) No Status Records FoundNo Status Records Found INFORMATION SOURCE (unrecogn ized section and content) DATE CREATED AUTHOR 10/12/2021 [facility] DATE CREATED AUTHOR AUTHOR'S ORGANIZ ATION 12/15/2021 [facility] FOR RECORDS PERTAINING TO PATIENTS WHO ARE OR HAVE BEEN ENROLLED IN A CHEMICAL DEPENDENCY/SUBSTANCEABUSE PROGRAM, SOME INFORMATION MAY BE OMITTED. This clinical summary was aggregated from multiple sources. Caution should be exercised in using it in the provision of clinical care. This summary normalizes information from multiple sources, and as a consequence, information in this document may materially change the coding, format and clinical context of patient data. In addition, data may be omitted in some cases. CLINICAL DECISIONS SHOULD BE BASED ON THE PRIMARY CLINICAL RECORDS. [employer] provides no warranty or guarantee of the accuracy or completeness of information in this document.
== END 2024-03-04 09:00 | disposition home or self-care (01) ==
LOC: RAD 09:00
PROVIDERS: PCP Family Medicine; Visit Provider Family Medicine
DX: M54.16 Radiculopathy, lumbar region (principal)
CPT/HCPCS: 72100

== ENCOUNTER 2024-03-08 08:28 | Outpatient (OUT) | payer SELFPAY ==
--- NOTE | 2024-03-08 08:32 | MR_ITS ---
[facility] [id number] Patient Name: BAILEY ESTRELLA MRN: [id number] date: 1980 Sex: M Assigned Patient Location: RAD Current Patient Location: [facility] Accession/Order Number: [id number] Exam Date: 03/08/2024 08:52 Report Date: 03/08/2024 10:43 At the request of: MICHELET OLMSTEAD Procedure: MR lumbar spine wo con MR lumbar spine wo con, 03/08/2024 8:52 AM EDT INDICATION: Lumbar Radiculopathy Acute COMPARISON: Prior x-ray of lumbar spine dated 03/04/2024 TECHNIQUE: Multiplanar, multisequential MRI images of lumbar spine were obtained without contrast. FINDINGS: For dictation purposes, the lowest complete disc space in the lumbar spine considered as L5-S1. There is normal physiologic lumbar lordosis. The vertebral height is preserved. The conus medullaris is at the level of T12-L1. No signal abnormality within the visualized spinal cord is noted. There is bilateral short pedicles predisposing patients to canal stenosis. Level of L1-L2 is unremarkable. At the level of L2-L3, there are disc bulge with mild bilateral neuroforaminal narrowing and mild canal stenosis. At the level of L3-4, there are disc bulge with no neuroforaminal narrowing and no canal stenosis. At the level of L4-5, there are disc bulge with superimposed right lateral disc protrusion with moderate bilateral neuroforaminal narrowing and mild canal stenosis. At the level of L5-S1, there are disc bulge with moderate right and mild left neuroforaminal narrowing and no canal stenosis. The paraspinal muscles are unremarkable. MR/MR lumbar spine wo con IMPRESSION: Mild degenerative changes of lumbar spine in particular at L4-L5 and L5-S1. Electronically authenticated by: GUILLERMO MORRISON Date: 03/08/2024 10:43
--- OUTSIDE RECORDS SUMMARY | 2024-03-08 08:36 | XMS_ITS | CCD ---
Author Organization [facility] Care Team Providers Care Sales Estimator Name Role Phone ISHAN, DR TAFOYA Admitting [...] Care Unavailable ISHAN, DR TAFOYA Admitting Unavailable ISHAN, DR TAFOYA Attending Unavailable TONGY, DR TAFOYA Consulting Unavailable ZIEBER, DR SHAINA Dumont Consulting Unavailable HOY, DR TAFOYA Consulting Unavailable TONGY, DR TAFOYA Primary Care Unavailable TONGY, DR TAFOYA Admitting Unavailable ISHAN, DR TAFOYA Attending Unavailable Allergies Allergy Classification Reported Allergen(s) Allergy Type Date of Onset Reaction(s) Facility (1 source) Penicillin Drug Allergy [facility] Repository Problems Active Problems Problem [...] Range Facility Anesthesia Noteon 10-13-2021 Anesthesia Note [facility] Patient: FLOYD ESTRELLA [address] [place] [address] MR#: [id number] ANESTHESIA NOTE : Service Date: 10/13/21956 Post-anesthesia [...] AA 10/13/21 0957 Christo Amos MD Normal [facility] BASIC MET PANELon 10-13-2021 Anion gap [Moles/Vol] 9 mmol/L Normal 6-18 [facility] Comment on above: Performed By: #### L 500.91851, L500.62450 ####Test performed at: [place] [address] Calcium [Mass/Vol] 9.7 mg/dL Normal 8.5-10.1 [facility] Comment on above: Performed By: #### L 500.04344, L500.94769 ####Test performed at: [address] [address] Chloride [Moles/Vol] 108 mmol/L High 98-107 [facility] Comment on above: Performed By: #### L 500.34991, L500.36446 ####Test performed at: [address] [address] CO2 [Moles/Vol] 27 mmol/L Normal 21-32 [facility] Comment on above: Performed By: #### L 500.43316, L500.03041 ####Test performed at: [address] [address] Creatinine [Mass/Vol] 0.861 mg/dL Normal 0.700-1.300 [facility] Comment on above: Performed By: #### L 500.00721, L500.79996 ####Test performed at: [address] [address] Glucose [Mass/Vol] 120 mg/dL High 70-99 [facility] Comment on above: Result Comment: Fast ing GLUCOSE reference range has been updated per (ADA) [place] Diabetes Association's recommendation. 08/11/2018 Performed By: #### L 500.16146, L500.48895 ####Test performed at: [address] [address] OSM 291 mosm/kg Normal 270-300 [facility] Comment on above: Performed By: #### L 500.06232, L500.81182 ####Test performed at: [address] [address] Potassium [Moles/Vol] 4.2 mmol/L Normal 3.5-5.1 [facility] Comment on above: Performed By: #### L 500.08344, L500.37983 ####Test performed at: [place] [address] Sodium [Moles/Vol] 140 mmol/L Normal 136-145 [facility] Comment on above: Performed By: #### L 500.47175, L500.40601 ####Test performed at: [place] [address] Urea nitrogen [Mass/Vol] 11 mg/dL Normal 7-18 [facility] Comment on above: Performed By: #### L 500.65932, L500.64585 ####Test performed at: [place] [address] Discharge CCD Assessmenton 0 10-13-2021 Discharge CCD Assessment [facility] Patient: FLOYD ESTRELLA [address] [place] [address] MR#: [id number] DISCHARGE CCD ASSESSMENT : 82 Service Date: 10/13/21 1227 Discharge CCD Assessment Assessment Patient discharged home to continue pain control, wound care, and exercises. Electronically Signed eSign Date and Time Dasiy Hu 10/13/21 1227 Chad Rodney MD Normal [facility] GFR ESTIMATEon 10-13-2021 IF AMER > 60 Normal > 60 [facility] Comment on above: Result Comment: eGFR (Estimated GFR) Units of measure:mL/min/1.73 meters sq. *CALCULATION REVISED 03/07/2015;IDMS-traceable MDRD equation eGFR is derived from the reexpressed MDRD Study equation using the following parameters: serum creatinine, age, gender and race. An eGFR<60 mL/min/1.73m2 for >3 months is consistent with chronic kidney disease. Refer to KDOQI guidelines for clinical interpretation. Performed By: #### L 500.03742, L500.59266 ####Test performed at: [place] [address] IF non-AFR AMER > 60 Normal > 60 [facility] Comment on above: Performed By: #### L 500.55610, L500.13372 ####Test performed at: [place] [address] HGB AND HCTon 10-13-2021 Hematocrit (Bld) [Volume fraction] 37.8 % Low 39.0-55.0 [facility] Comment on above: Performed By: #### L 200.94537 ####Test performed at: [address] [address] Hemoglobin (Bld) [Mass/Vol] 13.0 g/dL Low 14.0-16.5 [facility] Comment on above: Performed By: #### L 200.84861 ####Test performed at: [place] [address] Internal Med Progress Noteon 10-13-2021 Internal Med Progress Note [facility] Patient: FLOYD ESTRELLA [address] [place] [address] MR#: [id number] PROGRESS NOTE - Internal Medicine : 82 [...] Agree with above documentation. The [resident's, PA's, CELERY TIER's] assessment and plan reflect my input. Discussed with documenting provider and patient. Plan is as outlined above. Electronically Signed eSign Date and Time Cristino Choe Resident Rosa Hurst MD 10/13/21 1043 Normal [facility] OT Therapy Recommendationson 10-13-2021 OT Therapy Recommendations [facility] Patient: FLOYD ESTRELLA [address] [place] [address] MR#: [id number] OT THERAPY RECOMMENDATIONS : 82 Service Date: 10/13/21 1355 Therapy Recommendations Therapy Recommendations Recommendations OT eval completed. Pt will benefit from going home with family support. Electronically Signed eSign Date and Time Marissa Rosas OT 10/13/21 1356 Normal [facility] Orthopedic Progress Noteon 0 10-13-2021 Orthopedic Progress Note [facility] Patient: FLOYD ESTRELLA [facility] [place] [address] MR#: [id number] PROGRESS NOTE - Orthopedic : 82 Service [...] Woodward RN 10/13/213 Chad Rodney MD Normal [facility] PT Therapy Recommendationson 10-13-2021 PT Therapy Recommendations [facility] Patient: FLOYD ESTRELLA [address] [place] [id number] MR#: [id number] PT THERAPY RECOMMENDATIONS : 82 Service Date: 10/13/211212 Therapy Recommendations Therapy Recommendations Recommendations PT eval complete. No further acute PT needs. Recommend d/c home /c family assist. Electronically Signed eSign Date and Time Usha Johnson PT 10/13/21 121 Normal [facility] z OT Inpatient Evaluationon 10-13-2021 z OT Inpatient Evaluation [facility] Patient: FLOYD ESTRELLA [address] [place] [id number] MR#: [id number] OT INPATIENT EVALUATION : 82 Inpatient OT HPI Date of Service 10/13/21 Time In: 1009 Time Out: 1038 Total Treatment Time (Mins) 31 Visit Reason LATERAL RECESS STENOSIS Surgery Type/Date Rt L4-L5 Laminectomy, foraminotomy, decompression with poss discectomy. Referral Date 10/12/21 Tx Diagnosis: LUMBAGO Insurance Name [facility] [facility] 41yo M admitted for above [...] level of assist. Patient donned pants using manager stylist. OT instructed on exercises, reviewed precautions, and [...] Complexity Treatment (more content not included)... Normal [facility] z PT Inpatient Discharge Not mary ann 10-13-2021 z PT Inpatient Discharge Note [facility] Patient: FLOYD ESTRELLA [address] [place] [id number] MR#: [id number] PT INPATIENT DISCHARGE NOTE : 82 Service [...] Time Usha Johnson PT 10/13/21 1228 Normal [facility] z PT Inpatient Evaluationon 10-13-2021 z PT Inpatient Evaluation [facility] Patient: FLOYD ESTRELLA [address] [place] [id number] MR#: [id number] PT INPATIENT EVALUATION : 82 Service Date: 10/13/21 1213 Inpatient PT HPI Date of Service 10/13/21 Time In: 1025 Time Out: 1050 Total Treatment Time (Mins) 25 Room Number 622 Visit Reason LATERAL RECESS STENOSIS Surgery Type: R L4-5 lami, foraminotomy, decompression /c diskectomy Surgery Date: 10/12/21 Referral Date 10/12/21 Tx Diagnosis: LOW BACK PAIN Insurance Name [employer] [facility] 41 y.o male [facility] for above sx d/t lateral recess [...] Time Usha Johnson PT 10/13/21 1352 Normal [facility] ABO/RH REPEATon 10-12-2021 REPEAT TYPE Negative Normal [facility] Comment on above: Order Comment: CBN: NO [place]: MAIN Transfusion Status: CONSERVATION Blood Bank service requested: TYPE AND SCREEN Specimen Comment: PT IN HOLDING Performed By: #### B 100.0260, B100.0200 #### Test performed at: [place] [address] Internal Medicine Consultati onon 10-12-2021 Internal Medicine Consultation [facility] Patient: FLOYD ESTRELLA [address] [place] [address] MR#: [id number] CONSULTATION - Internal Medicine : 82 Service [...] Choe Resident 12/12/21 1146 Rosa Hurst MD [facility] OPERATIVE REPORTon OPERATIVE REPORT NAME: FLOYD ESTRELLA MR#: [id number] SURGEON: Chad Rodney MD DATE OF SURGERY: [...] tissues, and skin were closed in the [facility] PT NAME: FLOYD ESTRELLA MR#: [id number] [address] [place] [address] ACCT: [id number] : 82 OPERATIVE REPORT usual manner. Dressings were applied. The patient was awakened, taken to recovery room in excellent condition. There were no complications. MD [facility]/[id number] E/S: Chad Rodney MD 10/31/21 1121 Electronically Signed [facility] PT NAME: FLOYD ESTRELLA MR#: [id number] [address] [place] [address] ACCT: [id number] : 82 OPERATIVE REPORT Normal [facility] Primary Residenton 2 Primary Resident [facility] Pt Name: FLOYD ESTRELLA MR#: [id number] [address] [place] [address] ACCT: [id number] [place] [address] : 82 Service Date: 10/12/21 1623 Primary Resident/Call Primary Resident: Sherman Choe Halo After Hours Call: [phone] Red Team Electronically Signed eSign Date and Time Cristino Choe Resident 10/12/21 1623 Normal [facility] TSon 10-12-2021 ABO and Rh group Nom (Bld) Blood group O Rh(D) negative Normal [facility] Comment on above: Order Comment: CBN: NO [place]: MAIN Transfusion Status: CONSERVATION Blood Bank service requested: TYPE AND SCREEN Specimen Comment: PT IN HOLDING Performed By: #### B 100.0260, B100.0200 #### Test performed at: [place] [address] LUMBAR SPINE 2 OR 3 VIEWSon 10-11-2021 LUMBAR SPINE 2 OR 3 VIEWS STUDY: LUMBAR SPINE 2 OR 3 VIEWS; 10/12/2021 3:45 pm INDICATION: RT L4-5 LMAINECOTMY FORAMINOTOMY DECOMPRESSION. COMPARISON: None. ACCESSION NUMBER(S): [id number] ORDERING CLINICIAN: Chad Rodney FINDINGS: Intraoperative fluoroscopy lumbar spine for localization. IMPRESSION: As above Normal [facility]17 SARS-CoV-2 (COVID-19) RNA ARABELLA+probe Ql (Unsp spec) Not detected Normal NOT DETECTED [facility] Comment on above: Result Comment: This test is not yet approved or cleared by the [place] FDA. When there are no FDA-approved or cleared tests available, and other criteria are met, FDA can make tests available under an emergency access mechanism called an Emergency Use Authorization (EUA). The EUA for this test is supported by the [place] of Health and Human Service's (HHS's) declaration [...] SARS-CoV-2. Performed By: #### C VDTB #### [facility] [address] [place] [address] Dr. Leah Kaufman BASIC MET PANELon 10-08-2021 Anion gap [Moles/Vol] 8 mmol/L Normal 6-18 [facility] Comment on above: Performed By: #### L 500.79116, L500.94766 ####Test performed at: [address] [address] Calcium [Mass/Vol] 9.7 mg/dL Normal 8.5-10.1 [facility] Comment on above: Performed By: #### L 500.59695, L500.86653 ####Test performed at: [address] [address] Chloride [Moles/Vol] 104 mmol/L Normal 98-107 [facility] Comment on above: Performed By: #### L 500.24565, L500.54473 ####Test performed at: [address] [address] CO2 [Moles/Vol] 31 mmol/L Normal 21-32 [facility] Comment on above: Performed By: #### L 500.94099, L500.70662 ####Test performed at: [address] [address] Creatinine [Mass/Vol] 1.110 mg/dL Normal 0.700-1.300 [facility] Comment on above: Performed By: #### L 500.44647, L500.44816 ####Test performed at: [address] [address] Glucose [Mass/Vol] 90 mg/dL Normal 70-99 [facility] Comment on above: Result Comment: Fast ing GLUCOSE reference range has been updated per (ADA) [place] Diabetes Association's recommendation. 08/11/2018 Performed By: #### L 500.20882, L500.81686 ####Test performed at: [address] [address] OSM 288 mosm/kg Normal 270-300 [facility] Comment on above: Performed By: #### L 500.72616, L500.63718 ####Test performed at: [address] [address] Potassium [Moles/Vol] 4.4 mmol/L Normal 3.5-5.1 [facility] Comment on above: Performed By: #### L 500.66941, L500.18561 ####Test performed at: [address] [address] Sodium [Moles/Vol] 139 mmol/L Normal 136-145 [facility] Comment on above: Performed By: #### L 500.98675, L500.25560 ####Test performed at: [address] [address] Urea nitrogen [Mass/Vol] 14 mg/dL Normal 7-18 [facility] Comment on above: Performed By: #### L 500.28461, L500.23600 ####Test performed at: [address] [address] CBC W/DIFFon 10-08-2021 BASO ABS 0.1 K/uL Normal 0.0-0.2 [facility] Comment on above: Performed By: #### L 200.63194 #### Test performed at: [address] [address] Basophils/100 WBC (Bld) 0.9 % Normal [facility] Comment on above: Performed By: #### L 200.31642 #### Test performed at: [address] [address] EOS ABS 0.2 K/uL Normal 0.0-0.5 [facility] Comment on above: Performed By: #### L 200.67443 #### Test performed at: [address] [address] Eosinophils/100 WBC (Bld) 3.3 % Normal [facility] Comment on above: Performed By: #### L 200.11476 #### Test performed at: [address] [address] IG % 0.3 % Normal [facility] Comment on above: Performed By: #### L 200.22960 #### Test performed at: [address] [address] IG ABS 0.02 K/uL Normal 0-0.05 [facility] Comment on above: Performed By: #### L 200.24489 #### Test performed at: [address], [place] [address] Lymphocytes (Bld) [#/Vol] 2.6 10*3/uL Normal 1.2-3.5 [facility] Comment on above: Performed By: #### L 200.62029 #### Test performed at: [address] [address] Lymphocytes/100 WBC (Bld) 39.4 % Normal [facility] Comment on above: Performed By: #### L 200.27542 #### Test performed at: [address] [address] MONO ABS 0.5 K/uL Normal 0.0-1.0 [facility] Comment on above: Performed By: #### L 200.27305 #### Test performed at: [address] [address] Monocytes/100 WBC (Bld) 8.1 % Normal [facility] Comment on above: Performed By: #### L 200.33806 #### Test performed at: [address] [address] NEUTROPHIL ABS 3.2 K/uL Normal 1.4-6.6 [facility] Comment on above: Performed By: #### L 200.53304 #### Test performed at: [address] [address] Neutrophils/100 WBC (Bld) 48.0 % Normal [facility] Comment on above: Performed By: #### L 200.12198 #### Test performed at: [address] [address] Erythrocyte distribution width (RBC) [Ratio] 12.9 % Normal 11.5-14.5 [facility] Comment on above: Performed By: #### L 200.18961 #### Test performed at: [address] [address] Hematocrit (Bld) [Volume fraction] 43.6 % Normal 39.0-55.0 [facility] Comment on above: Performed By: #### L 200.83488 #### Test performed at: [place] [address] Hemoglobin (Bld) [Mass/Vol] 14.5 g/dL Normal 14.0-16.5 [facility] Comment on above: Performed By: #### L 200.25768 #### Test performed at: [place] [address] MCH (RBC) [Entitic mass] 28.4 pg Normal 25.4-34.6 [facility] Comment on above: Performed By: #### L 200.37499 #### Test performed at: [place] [address] MCHC (RBC) [Mass/Vol] 33.3 g/dL Normal 31.5-36.5 [facility] Comment on above: Performed By: #### L 200.51446 #### Test performed at: [place] [address] MCV (RBC) [Entitic vol] 85.3 fL Normal 80.0-100.0 [facility] Comment on above: Performed By: #### L 200.17246 #### Test performed at: [place] [address] NRBC # 0.000 K/uL Normal 0-0.012 [facility] Comment on above: Performed By: #### L 200.14120 #### Test performed at: [place] [address] NRBC % 0.0 /100 WBC Normal 0-0.2 [facility] Comment on above: Performed By: #### L 200.57220 #### Test performed at: [place] [address] Platelet mean volume (Bld) [Entitic vol] 9.8 fL Normal 8.7-12.4 [facility] Comment on above: Performed By: #### L 200.60920 #### Test performed at: [address] [address] Platelets (Bld) [#/Vol] 334 10*3/uL Normal 140-440 [facility] Comment on above: Performed By: #### L 200.35223 #### Test performed at: [address] [address] RBC (Bld) [#/Vol] 5.11 10*6/uL Normal 3.5-5.5 [facility] Comment on above: Performed By: #### L 200.42740 #### Test performed at: [address] [address] WBC (Bld) [#/Vol] 6.7 10*3/uL Normal 3.9-11.0 [facility] Comment on above: Performed By: #### L 200.90707 #### Test performed at: [address] [address] CONSULTATION REPORTon 2021 CONSULTATION REPORT NAME: FLOYD ESTRELLA MR#: [id number] INSULATION CUPOLA OPERATOR: Danielle Koenig MD DATE OF CONSULTATION: 10/08/2021 [...] is cleared for anesthesia with acceptable risk. [facility] PT NAME: FLOYD ESTRELLA MR#: [id number] [address] [place] [address] ACCT: [id number] : 82 CONSULTATION Thank you for the courtesy of this consultation. DANIELLE KOENIG MD MS/MODL/[id number] E/S: Danielle Koenig MD 10/08/21 1342 Electronically Signed [facility] PT NAME: FLOYD ESTRELLA MR#: [id number] [address] [place] [address] ACCT: [id number] : 82 CONSULTATION Normal [facility] GFR ESTIMATEon 10-08-2021 IF AMER > 60 Normal > 60 [facility] Comment on above: Result Comment: eGFR (Estimated GFR) Units of measure:mL/min/1.73 meters sq. *CALCULATION REVISED 03/07/2015;IDMS-traceable MDRD equation eGFR is derived from the reexpressed MDRD Study equation using the following parameters: serum creatinine, age, gender and race. An eGFR<60 mL/min/1.73m2 for >3 months is consistent with chronic kidney disease. Refer to KDOQI guidelines for clinical interpretation. Performed By: #### L 500.59266, L500.98166 ####Test performed at: [place] [address] IF non-AFR AMER > 60 Normal > 60 [facility] Comment on above: Performed By: #### L 500.43206, L500.15818 ####Test performed at: [place] [address] MRI LSPINE WO CONon 09-14-19 MRI LSPINE [...] SHAINA HENRY Date: 2021-09-13 12:53 Normal [facility] XR FOREIGN BODY EYEon 2021 XR FOREIGN BODY EYE EXAMINATION: XR FOREIGN BODY EYE HISTORY: Foreign body in eye COMPARISON: No relevant comparison available. FINDINGS: ORBITS: Negative for a metallic foreign body. OTHER: Negative. IMPRESSION: 1. No metallic foreign body within the orbits. Electronically authenticated by: SHAINA HENRY Date: 2021-09-13 11:11 Normal [facility] XR LSPINE MIN 4 VIEWSon [...] MARY IZAGUIRRE Date: 2021-09-10 17:46 Normal [facility] Covid-19 PCR (CVDTB)on 04-19 SARS-CoV-2 (COVID-19) RNA ARABELLA+probe Ql (Unsp spec) Detected Critically abnormal NOT DETECTED [facility] Comment on above: Result Comment: This test is not yet approved or cleared by the [place] FDA. When there are no FDA-approved or cleared tests available, and other criteria are met, FDA can make tests available under an emergency access mechanism called an Emergency Use Authorization (EUA). The EUA for this test is supported by the [employer] of Health and Human Service's (HHS's) declaration [...] longer be used). Performed By: #### C [facility] #### [facility] [address] [place], [place] [address] Dr. Leah Kaufman Encounters Encounter Date Encounter [...] Comment on above: Order Comment: CBN: NO [place]: MAIN Transfusion Status: CONSERVATION Blood Bank service requested: TYPE AND SCREEN Specimen Comment: PT IN HOLDING Performed By: #### B 100.0260, B100.0200 #### Test performed at: [place] [address] Payers Date Payer Category Payer Unknown [id number] 2.16.84 [id number] 1980 Unknown [id number] 2.16.84 [id number] 1980 Unknown [id number] 2.16.84 [id number] 1980 Unknown [id number] 2.16.84 [id number] 1980 Unknown [id number] 2.16.84 [id number] 1959 Unknown [id number] Discharge summary note 10-15-2021 Note Date & Type Note Facility 10-15-2021 Note [facility] Patient: FLOYD ESTRELLA [address] [place] [address] [id number] DISCHARGE SUMMARY : 82 Service Date: 10/15/21705 [...] Ortho 10/16/21 For Providers: Chad Rodney MD [facility] [place] [address] Call the office for appointment time to have drain removed Diet REGULAR Condition Fair Disposition Home Electronically Signed eSign Date and Time Cristino Choe Resident 10/16/21 0833 Keri Hurst MD [facility] Summary Purpose Family History No Family History Records FoundNo Family History Records Found Advance Directives No Advanced Directives Records FoundNo Advanced Directives Records Found Additional Source Comments (unrecognized sect ion and content) No Status Records FoundNo Status Records Found INFORMATION SOURCE (unrecogn ized section and content) DATE CREATED AUTHOR 10/12/2021 [facility] DATE CREATED AUTHOR AUTHOR'S ORGANIZ ATION 12/15/2021 [facility] FOR RECORDS PERTAINING TO PATIENTS WHO ARE [...] BE BASED ON THE PRIMARY CLINICAL RECORDS. [employer] provides no warranty or guarantee of the accuracy or completeness of information in this document.
--- NOTE | 2024-03-08 08:50 | XR_ITS ---
The [address] [address] Patient Name: BAILEY ESTRELLA MRN: [id number] date: 1980 Sex: M Assigned Patient Location: RAD Current Patient Location: [facility] Accession/Order Number: [id number] Exam Date: 03/08/2024 08:46 Report Date: 03/08/2024 09:41 At the request of: MICHELET OLMSTEAD Procedure: XR foreign body eye CARLOS EXAMINATION: XR foreign body eye CARLOS HISTORY: Foreign Body Eye COMPARISON: No relevant comparison available. FINDINGS: ORBITS: Negative for a metallic foreign body. OTHER: Negative. XR/XR foreign body eye CARLOS IMPRESSION: No metallic foreign body in the orbits Electronically authenticated by: MARY IZAGUIRRE Date: 03/08/2024 09:41
== END 2024-03-08 08:29 | disposition home or self-care (01) ==
LOC: RAD 08:28
PROVIDERS: PCP Family Medicine; Visit Provider Family Medicine
DX: M54.16 Radiculopathy, lumbar region (principal); Z01.818 Encounter for other preprocedural examination
CPT/HCPCS: 70030; 72148